=== PATIENT | female | born 1985 ===

== ENCOUNTER 2021-03-01 14:54 | Inpatient (IN) | payer BC, OTHER ==
[2021-03-01] VITALS (8 sets, daily range): BP systolic 124–154; BP diastolic 74–92; PULSE 67–96; TEMP 97.9–98.9
[~2021-03-01] VITALS: Ht 170.2 cm; Wt 116.4 kg
--- NOTE | 2021-03-01 14:58 | NUR ---
1458- Patient arrives via wheelchair with spouse with complaints of contractions since 1300 that patient reports have worsened and are every 2 minutes. Patient denies ROM, reports bloody show, and reports normal movement. Patient bearing down with contractions, assisted to bed and EFM explained and placed. 1459- SVE per Lulu Chacon RN 2. Dr. Craig called by this RN and requested immediately for delivery. Nursery RN at bedside. 1505- IV started by Isma Hallman RN. Labs obtained. LR infusing. 1506- Dr. Craig at bedside. Patient reports urge to push. 1507- AROM by Dr. Craig for light meconium fluid noted. 1508- Patient begins pushing. 1509- of viable male infant attended by Dr. Craig. Infant to mothers abdomen then warmer for assessment. Care of infant to Geo Briggs RN. Apgars 8/9/9. See EMAR. Fentanyl given per order per patient request. 1516- Spont. delivery of placenta. Pitocin bolus started at 333 ml/hr/protocol. Periclitoral and second degree laceration repaired by physician, patient tolerates well. Fundal massage by RN, firm at umbilicus. Vaginal bleeding WNL. Pericare given and ice pack applied. Patient updated on plan of care and safety.
[2021-03-01 15:43] LABS: BASO # 0.1 (0.0-0.2); BASO % 0.3 % (0.0-2.0); EOS # 0.2 (0.0-0.7); EOS % 1.1 % (0-4.0); GRAN # 12.3 (1.4-6.5); GRAN % 67.3 % (42.2-75.2); HEMATOCRIT 39.8 % (37.0-47.0); HEMOGLOBIN 13.7 g/dl (12.5-16.0); LYMPH # 4.1 (1.2-3.4); LYMPH % 22.5 % (20.0-51.0); MEAN CELL VOLUME 92 fl (80.0-100.0); MEAN CORPUSCULAR HEMOGLOBIN 32 pg (27.0-31.0); MEAN CORPUSCULAR HGB CONC 34 g/dl (33.0-37.0); MEAN PLATELET VOLUME 10.5 fl (7.4-10.4); MONO # 1.4 (0.1-0.6); MONO % 7.9 % (1.7-9.3); PLATELET COUNT 357 K/mm3 (130-400); RED BLOOD COUNT 4.32 M/mm3 (4.10-5.30); REDCELL DISTRIBUTION WIDTH-CV 12.9 % (11.5-14.5)
[2021-03-01] MEDS ORDERED: PRENATAL FORMU1 EAC3 PO (16:10)
[2021-03-01] MEDS ORDERED: VITAMIN D3400 I1 PO (16:10)
[2021-03-01] MEDS ORDERED: CALCIUM CARBON650 M2 (16:10)
[2021-03-01] MEDS ORDERED: ONE-A-DAY ESSE1 EACH PO (16:10)
[2021-03-01] MEDS ORDERED: VITAMIN C500 MG PO (16:11)
[2021-03-01] MEDS ORDERED: ASPIRIN 81M81 MG/TA2 PO (16:11)
--- NOTE | 2021-03-01 16:31 | NUR ---
Patient is 10 days post second covid vaccine. refuses test.
[2021-03-01 17:39] LABS: COLLECTION METHOD CLEAN CATCH
[2021-03-01 18:11] LABS: PH 7 (5-8); SQUAMOUS EPITHELIAL None Seen /hpf; URINE APPEARANCE Hazy; URINE BACTERIA Rare /hpf; URINE BILIRUBIN Negative (NEGATIVE); URINE BLOOD 3+ (NEGATIVE); URINE COLOR Red; URINE GLUCOSE Negative (NEGATIVE); URINE KETONE Negative (NEGATIVE); URINE LEUKOCYTE ESTERASE Negative (NEGATIVE); URINE NITRATE Negative (NEGATIVE); URINE PROTEIN(semi-quant) 1+ (NEGATIVE); URINE RBC >50 /hpf; URINE UROBILINOGEN Negative (NEGATIVE); URINE WBC None Seen /hpf
[2021-03-01 19:13] LABS: ALANINE AMINOTRANSFERASE 9 U/L (4-34); ALBUMIN 3.4 gm/dL (3.5-5.0); ALKALINE PHOSPHATASE 70 U/L (50-136); ANION GAP 7 mmol/L (7-16); AST,SGOT 25 U/L (15-37); BILIRUBIN,TOTAL < 0.1 mg/dL (0.0-1.0); BLOOD UREA NITROGEN 11 mg/dL (7-17); CALCIUM 9.4 mg/dL (8.4-10.2); CARBON DIOXIDE 19 mmol/L (22-30); CHLORIDE 107 mmol/L (98-107); CREATININE, serum 0.64 (0.52-1.25); GLUCOSE 89 mg/dL (74-106); POTASSIUM 3.9 mmol/L (3.4-5.0); SODIUM 133 mmol/L (137-145); TOTAL PROTEIN 6.5 gm/dL (6.4-8.2)
[2021-03-02 00:10] VITALS: BP 147/83; PULSE 88; TEMP 98
[2021-03-02 03:00] VITALS: BP 127/73; PULSE 74
[2021-03-02] MEDS ORDERED: MOTRIN 800800 MG/TAB PO (07:38)
[2021-03-02 08:18] VITALS: BP 124/82; PULSE 86; TEMP 98.1
--- NOTE | 2021-03-02 09:14 | NUR ---
Initial visit; Parents thanked [employer] Supervisor for offering congratulations and God's blessings for the of their son. [employer] System [employer] Supervisor thanked family for choosing our hospital.
--- NOTE | 2021-03-02 10:21 | NUR ---
[address]ABY [address] FERRER FOR TACHPNEA. SAT 98% ROOM AIR. RESP 64-70 NO RETRACTIONS, NASEL FLARING. LABS AND CHEST XRAY ALSO DONE AT THIS TIME
[2021-03-02 20:30] VITALS: BP 137/83; PULSE 89; TEMP 97.9
[2021-03-03 04:30] VITALS: BP 138/72; PULSE 77; TEMP 98.5
[2021-03-03 07:30] VITALS: BP 126/69; PULSE 72; TEMP 98.7
== END 2021-03-03 10:35 | disposition home or self-care (01) | DRG 768 ==
LOC: LDRO 14:54 → LDR 15:23 → OB 15:23
PROVIDERS: Obstetrics & Gynecology; ADMIT Obstetrics & Gynecology
PROC: 10E0XZZ Delivery of Products of Conception, External Approach (ICD-10-PCS; principal; 2021-03-01)
PROC: 0UQJXZZ Repair Clitoris, External Approach (ICD-10-PCS; 2021-03-01)
PROC: 0KQM0ZZ Repair Perineum Muscle, Open Approach (ICD-10-PCS; 2021-03-01)
PROC: 10907ZC Drainage of Amniotic Fluid, Therapeutic from Products of Conception, Via Natural or Artificial Opening (ICD-10-PCS; 2021-03-01)
DX: O62.3 Precipitate labor (principal); Z37.0 Single live birth; Z3A.38 38 weeks gestation of pregnancy
CPT/HCPCS: J2590; J3010; J7120